=== PATIENT | female | born 1980 | race Caucasian/White ===

== ENCOUNTER → 2022-05-25 | Outpatient (CLI) | payer OTHER, MEDICAID, SELFPAY ==
--- NOTE | 2022-05-25 18:31 | STRESSREP ---
Stress Test Report Exercise stress test. 41-year-old lady with a history of dyspnea on exertion. Stress protocol: Resting KG demonstrates normal sinus rhythm with a rate of 89 bpm normal intervals are noted resting blood pressure is 134/88 mmHg. Patient exercised according to regular Cameron protocol for total duration of 6 minutes the maximum heart rate was 179 bpm which was 98% of max impacted heart rate the maximum workload was 7 metabolic equivalents. At rest there were no ST or T wave changes noted to suggest ischemia and at peak exercise upsloping ST changes were noted which did not meet the criteria for ischemia. No clinical angina was noted shortness of breath was noted and the test was terminated due to the target heart rate being achieved. The peak blood pressure was 178/88 mmHg with a rate-pressure part of 31,328. Conclusion: Stress test with no EKG criteria for ischemia at a high workload. No clinical angina noted.
== END | disposition home or self-care (01) ==
PROVIDERS: PCP Family Medicine; Referring Provider Nurse Practitioner Primary Care; Visit Provider Nurse Practitioner Primary Care
DX: R06.09 Other forms of dyspnea (principal)
CPT/HCPCS: 93017